=== PATIENT | male | born 1995 | race Caucasian/White ===

== ENCOUNTER 2021-05-07 15:00 | Emergency (ER) | payer SELFPAY ==
--- NOTE | 2021-05-07 16:37 | Emergency Department Report ---
ED ENT HPI - General Chief complaint: Earache Stated complaint: EARACHE Source: patient Mode of arrival: Ambulatory Limitations: No Limitations - History of Present Illness Initial comments: 25-year-old male presents to the ED complaining right earache x2 days. 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 Patient states that he constantly pulling ear buds in and out of both ear. Denies any complaint of a headache. Denies any hearing loss. Patient is alert and oriented x3. Denies any drainage from ear. Denies any recent surgery or recent illness. no acute distress no. No ill appearance noted. MD complaint: ear pain Onset/Timin -: days(s) Location: R ear Severity scale (0 -10): 7 Quality: aching Consistency: constant Improves with: none - Related Data Previous Rx's Medication Instructions Recorded Last Taken Type Amoxicillin/Potassium Clav 1 each PO BID 7 Days #14 tab 05/07/21 Unknown Rx [Augmentin 875-125 Tablet] Ibuprofen [Motrin] 800 mg PO Q8HR PRN 15 Days #30 05/07/21 Unknown Rx tablet Allergies Allergy/AdvReac Type Severity Reaction Status Date / Time No Known Allergies Allergy Unverified 05/07/21 16:04 ED Dental HPI - General Chief complaint: Earache Stated complaint: EARACHE Source: patient Mode of arrival: Ambulatory Limitations: No Limitations - Related Data Previous Rx's Medication Instructions Recorded Last Taken Type Amoxicillin/Potassium Clav 1 each PO BID 7 Days #14 tab 05/07/21 Unknown Rx [Augmentin 875-125 Tablet] Ibuprofen [Motrin] 800 mg PO Q8HR PRN 15 Days #30 05/07/21 Unknown Rx tablet Allergies Allergy/AdvReac Type Severity Reaction Status Date / Time No Known Allergies Allergy Unverified 05/07/21 16:04 ED Review of Systems ROS: Stated complaint: EARACHE Other details as noted in HPI Constitutional: denies: chills, fever Eyes: denies: eye pain, eye discharge, vision change ENT: ear pain. denies: throat pain Respiratory: denies: cough, shortness of breath, wheezing Cardiovascular: denies: chest pain, palpitations Endocrine: no symptoms reported Gastrointestinal: denies: abdominal pain, nausea, diarrhea Genitourinary: denies: urgency, dysuria Musculoskeletal: denies: back pain, joint swelling, arthralgia Skin: denies: rash, lesions Neurological: denies: headache, weakness, paresthesias Psychiatric: denies: anxiety, depression Hematological/Lymphatic: denies: easy bleeding, easy bruising ED Past Medical Hx - Medications Home Medications: Home Medications Medication Instructions Recorded Confirmed Last Taken Type Amoxicillin/Potassium Clav 1 each PO BID 7 Days #14 tab 05/07/21 Unknown Rx [Augmentin 875-125 Tablet] Ibuprofen [Motrin] 800 mg PO Q8HR PRN 15 Days #30 05/07/21 Unknown Rx tablet ED Physical Exam - General Limitations: No Limitations General appearance: alert, in no apparent distress - Head Head exam: Present: atraumatic, normocephalic - Eye Eye exam: Present: normal appearance - ENT ENT exam: Present: mucous membranes moist - Expanded ENT Exam Expanded TM/Canal exam: Erythema: Right TM, Bulging: Right TM - Neck Neck exam: Present: normal inspection - Respiratory Respiratory exam: Present: normal lung sounds bilaterally. Absent: respiratory distress - Cardiovascular Cardiovascular Exam: Present: regular rate, normal rhythm. Absent: systolic murmur, diastolic murmur, rubs, gallop - GI/Abdominal GI/Abdominal exam: Present: soft, normal bowel sounds - Rectal Rectal exam: Present: deferred - Extremities Exam Extremities exam: Present: normal inspection - Back Exam Back exam: Present: normal inspection - Neurological Exam Neurological exam: Present: alert, oriented X3 - Psychiatric Psychiatric exam: Present: normal affect, normal mood - Skin Skin exam: Present: warm, dry, intact, normal color. Absent: rash ED Course Vital Signs 05/07/21 16:06 Temperature 98.4 F Pulse Rate 110 H Respiratory 18 Rate Blood Pressure 123/76 [Right] O2 Sat by Pulse 99 Oximetry ED Medical Decision Making - Medical Decision Making 25-year-old male presents to the ED complaining right earache x2 days. 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 Patient states that he constantly pulling ear buds in and out of both ear. Denies any complaint of a headache. Denies any hearing loss. Patient is alert and oriented x3. Denies any drainage from ear. Denies any recent surgery or recent illness. no acute distress no. No ill appearance noted. Examination show red bulging right ear. We will treat patient with antibiotic. Rechecked the patient is resting quietly quietly and comfortable and feeling better. I discussed the results of diagnostic study, my clinical impression and the plan for further treatment with the patient. Patient agrees with plan and discharge at this present time. All question addressed. I have given the patient instruction regarding a diagnosis ,expectation ,follow- up and return precaution. I explained to the patient that emergent condition may arise and to return to the ED for new worsen and any new persisting condition. I have explained the importance of following up with the primary care physician or referral physician listed below has instructed. The patient verbalized understanding of discharge instruction. Critical care attestation.: If time is entered above; I have spent that time in minutes in the direct care of this critically ill patient, excluding procedure time. ED Disposition Clinical Impression: Otitis media Qualifiers: Otitis media type: unspecified Chronicity: acute Qualified Code(s): H66.90 - Otitis media, unspecified, unspecified ear Disposition: 01 HOME / SELF CARE / HOMELESS Is pt being admited?: No Does the pt Need Aspirin: No Condition: Stable Instructions: Otitis Media, Adult, Otitis Media, Adult, [id number] Additional Instructions: Take medication as needed Return to the ED as needed Prescriptions: Amoxicillin/Potassium Clav [Augmentin 875-125 Tablet] 1 each PO BID 7 Days #14 tab Ibuprofen [Motrin] 800 mg PO Q8HR PRN 15 Days #30 tablet PRN Reason: Pain, Moderate (4-6) Referrals: [facility] [Provider Group] - 3-5 Days Forms: Work/School Release Form(ED)
[2021-05-07 17:02] VITALS: BP 114/56
== END 2021-05-07 17:02 | disposition home or self-care (01) ==
LOC: ED 15:00
DX: H66.91 Otitis media, unspecified, right ear (principal)
CPT/HCPCS: 99282